=== PATIENT | female | born 1965 | race Caucasian/White ===

== ENCOUNTER → 2022-12-20 | Outpatient (CLI) | payer BC ==
[~2022-12-20] MED LIST: ACHD5005 PO; AMOX1TAB12 PO; CEPH500T PO; SULF-221 PO
== END ==
LOC: ORTHO 13:50
PROVIDERS: ATTEND Orthopaedic Surgery
DX: M87.88 Other osteonecrosis, other site (principal)
CPT/HCPCS: 99203

== ENCOUNTER → 2023-03-02 | Outpatient (CLI) | payer BC ==
--- NOTE | 2023-03-02 15:50 | Diagnostic Imaging Report ---
PROCEDURE: MRI left joint lower extremity without contrast. TECHNIQUE: Multiplanar, multisequence non contrast-enhanced MRI of the left lower extremity was accomplished. INDICATION: History of osteonecrosis. Left hip pain. EXAMINATION: MRI of the left hip 03/02/2023. FINDINGS: Subchondral cystic changes noted within the left femoral head. Mild irregularity along the superior and medial border of the femoral head consistent with a chronic mild deformity seen on radiographs. No definite changes of osteonecrosis appreciated although underlying chronic osteonecrosis not excluded. Mild degenerative findings noted in the right hip. There are no significant joint effusions. No acute fractures or dislocations. Labrum grossly intact on this noncontrast examination. The hamstrings tendon origins intact. Iliopsoas tendons and musculature unremarkable. There is mild edema within the lateral border of the gluteus medius muscle on the left extending to the tendinous insertion at the greater trochanter perhaps due to a mild strain. There is no discontinuity of the tendons. The visualized intrapelvic structures demonstrate mild wall thickening of the urinary bladder likely due to under distention. Cystitis could cause a similar appearance. IMPRESSION: 1. Edema within the gluteus medius musculature abutting the lateral border of the proximal femur possibly due to a strain. No focal tear or discontinuity of the adjacent tendon appreciated. 2. Degenerative findings in the hips left greater than right. No evidence for acute avascular necrosis noted. A small focus of chronic avascular necrosis not excluded. If this would change clinical course, CT of the left hip could help exclude underlying chronic osteophytic necrosis as clinically indicated. Other findings as above. Dictated by: Dictated on workstation # [id number]
== END ==
LOC: RAD 12:15
PROVIDERS: ATTEND Orthopaedic Surgery
DX: M16.0 Bilateral primary osteoarthritis of hip (principal)
CPT/HCPCS: 73721